=== PATIENT | female | born 1975 | race Caucasian/White ===

== ENCOUNTER 2019-10-30 03:39 | Emergency (ER) | payer OTHER ==
[~2019-10-30] VITALS: Ht 160 cm; Wt 72.6 kg
[~2019-10-30 03:39] MED LIST: ATIVAN1 MG PO; CIPROFLOXACIN500 M1 PO; DEPAKOTE 250MG250 MG; DEPAKOTE500 MG; DOXEPIN; FLEXERIL PO; HYDROCODON-ACE1 EACH PO; IBUPROFEN 800800 M1 PO; NOHOMEMEDICATIONS; PHENERGAN 25 MG25 MG PO; PHENOBARBITAL15 MG; TEGRETOL200 MG; TRAMADOL 50 MG50 MG PO; VALIUM10 MG
[2019-10-30 04:16] LABS: ABSOLUTE EOSINOPHILS 0.3 thou/uL (0.0-0.7); ABSOLUTE LYMPHOCYTES 2.6 thou/uL (0.8-5.3); ABSOLUTE MONOCYTES 0.3 thou/uL (0.0-1.2); ABSOLUTE NEUTROPHILS 2.5 thou/uL (1.6-8.1); BASOPHILS 0.7 %; HEMATOCRIT 39.4 % (37.0-47.0); HEMOGLOBIN 13.7 gm/dL (12.0-15.0); MCH 30.1 pg (26.0-34.0); MCHC 34.8 g/dL (28.0-37.0); MCV 86.2 fL (80.0-100.0); MONOCYTES 5.7 %; MPV 9.8 fl. (7.2-11.1); NUCLEATED RBCS 0 /100WBC; PLATELET COUNT* 222 thou/uL (150-400); POLYS 42.6 %; RBC 4.57 mil/uL (4.20-5.00); RDW-CV 13.1 % (10.5-14.5); WBC 5.8 thou/uL (4.0-11.0)
[2019-10-30 04:20] LABS: CALCIUM 8.4 mg/dL (8.5-10.1); POTASSIUM 3.2 mmol/L (3.5-5.1)
[2019-10-30 05:11] VITALS: BP 124/76
--- NOTE | 2019-10-30 17:10 | EKG ---
[place] [address] ELECTROCARDIOGRAM REPORT Name: GUERDA AGUDELO Room: [facility]#: [id number] Admission: 10/30/19 Attend Phys: Discharge: 10/30/19 Date of : 79 Report #: [id number] THIS REPORT FOR: //name// [facility] ED Test Date: 2019-10-30 Test Time: 03:44:44 Pat Name: GUERDA AGUDELO Department: Room: Gender: F Asw Specialist: SIS : 1975 Requested By: Magaly Ace Order Number: [id number] Reading MD: Florencio Mosher Measurements Intervals [place] Rate: 82 P: 79 NM: 202 QRS: 60 QRSD: 100 T: 20 QT: 404 QTc: 472 Interpretive Statements Sinus rhythm Borderline prolonged NM interval Nonspecific T abnormalities, anterior leads Compared to ECG 04/01/2015 18:14:15 Sinus bradycardia no longer present Possible ischemia no longer present T-wave abnormality still present Electronically Signed On 10-30-2019 17:09:43 ZONING ADMINISTRATOR by Florencio Mosher [email or web address] <ELECTRONICALLY SIGNED> By: Florencio Mosher MD, [facility] 10/30/19 1709 [id number] Florencio Mosher MD, [facility] /EPI
== END 2019-10-30 05:11 | disposition home or self-care (01) ==
LOC: M.ERS 03:39
PROVIDERS: Emergency Medicine
DX: R07.89 Other chest pain (principal); R10.13 Epigastric pain; F17.210 Nicotine dependence, cigarettes, uncomplicated; Z90.49 Acquired absence of other specified parts of digestive tract; Z90.710 Acquired absence of both cervix and uterus

== ENCOUNTER 2020-10-07 07:34 | Emergency (ER) | payer OTHER ==
[~2020-10-07] VITALS: Ht 160 cm; Wt 59.0 kg
[2020-10-07 07:41] VITALS: BP 148/98
[2020-10-07] MEDS ORDERED: DOXYCYCLINE 10100 M2 PO (08:09)
== END 2020-10-07 09:10 | disposition home or self-care (01) ==
LOC: M.ERS 07:34
DX: S00.86XA Insect bite (nonvenomous) of other part of head, initial encounter (principal); L03.211 Cellulitis of face; U07.1 COVID-19; F17.210 Nicotine dependence, cigarettes, uncomplicated; Z90.49 Acquired absence of other specified parts of digestive tract; Z90.710 Acquired absence of both cervix and uterus; W57.XXXA Bitten or stung by nonvenomous insect and other nonvenomous arthropods, initial encounter; Y93.89 Activity, other specified; Y92.89 Other specified places as the place of occurrence of the external cause; Y99.8 Other external cause status